=== PATIENT | male | born 1965 | race Caucasian/White ===

== ENCOUNTER 2018-10-05 07:21 | Day surgery (SDC) | payer OTHER ==
[2018-10-05] MEDS ORDERED: Lidocaine Hydrochloride 5 ML INJ ONE (08:41)
[2018-10-05] MEDS ORDERED: Propofol 10 mg/ml Inj (20 ML) ONE (08:41)
[2018-10-05] MEDS ORDERED: Lactated Ringer's 500 ML IV ONE ×2 (08:42)
--- NOTE | 2018-10-05 08:44 | CP.SDSHP ---
Same Day Surgery H & P - History Proposed Procedure: COLONSCOPY Pre-Op Diagnosis: SEE NOTES - Previous Medical/Surgical History Misc: Other Pain: 2.Mild Pain - Allergies Allergies: Allergies No Known Allergies Allergy (Verified 10/04/18 09:28) - Physical Exam General Appearance: N Vital Signs: Vital Signs 10/05/18 07:51 Temperature 99.8 F H Pulse Rate 63 Respiratory 19 Rate Blood Pressure 129/78 O2 Sat by Pulse 98 Oximetry Mental Status: Alert & Oriented x3 Neuro: WNL Heart: WNL Lungs: WNL GI: Other - {Optional Preform as Required} Breast: WNL Abdomen: WNL Rectal: WNL Integument: WNL : WNL Ortho: Other ENT: WNL - Impression Pt. Evaluated Today:Candidate for Anesthesia & Procedure: Yes - Date & Time Time: 08:44 Short Stay Discharge - Short Stay Discharge Admitting Diagnosis/Reason for Visit: ENCOUNTER FOR SCREENING FOR MALIGNANT NEOPLASM OF Disposition: HOME/ ROUTINE Referrals: FAMILY PROVIDER,NO [Primary Care Provider] -
[2018-10-05] MEDS ORDERED: Belladonna-Phenobarbital PO ONE (09:35)
[2018-10-05 11:47] VITALS: TEMP 98
[2018-10-05 11:50] VITALS: O2SAT 100
[2018-10-05 12:01] VITALS: BP 105/60; PULSE 62; RESP 18
== END 2018-10-05 10:30 | disposition home or self-care (01) ==
LOC: EDBD 07:21 → C.ENDO 07:21
PROVIDERS: ATTEND Specialist
DX: Z12.11 Encounter for screening for malignant neoplasm of colon (principal); D12.2 Benign neoplasm of ascending colon; D12.5 Benign neoplasm of sigmoid colon; K64.8 Other hemorrhoids; K57.90 Diverticulosis of intestine, part unspecified, without perforation or abscess without bleeding
CPT/HCPCS: 45380; 88305; J2704; J7120

== ENCOUNTER 2018-11-23 08:54 | Day surgery (SDC) | payer OTHER ==
[2018-11-23 10:32] VITALS: BMI 33.0
[2018-11-23] MEDS ORDERED: Lactated Ringer's 1,000 ML IV ONE (12:15)
--- NOTE | 2018-11-23 12:16 | CP.SDSHP ---
Same Day Surgery H & P - History Proposed Procedure: EGD Pre-Op Diagnosis: SEE NOTES - Previous Medical/Surgical History Pain: 4.Moderate Pain - Allergies Allergies: Allergies No Known Allergies Allergy (Verified 11/23/18 10:31) - Physical Exam General Appearance: N Vital Signs: Vital Signs 11/23/18 10:40 Temperature 99.6 F Pulse Rate 60 Respiratory 20 Rate Blood Pressure 109/68 O2 Sat by Pulse 98 Oximetry Mental Status: Alert & Oriented x3 Neuro: WNL Heart: WNL Lungs: WNL GI: Other - {Optional Preform as Required} Breast: WNL Abdomen: Other Rectal: Other Integument: WNL : WNL Ortho: WNL ENT: WNL - Impression Pt. Evaluated Today:Candidate for Anesthesia & Procedure: Yes - Date & Time Time: 12:16 Short Stay Discharge - Short Stay Discharge Admitting Diagnosis/Reason for Visit: DYSPEPSIA Disposition: HOME/ ROUTINE Referrals: FAMILY PROVIDER,NO [Primary Care Provider] -
[2018-11-23] MEDS ORDERED: Propofol 10 mg/ml Inj (20 ML) ONE ×2 (12:19→12:27)
[2018-11-23] MEDS ORDERED: Pantoprazole 40 mg EC Tab PO ONE (12:30)
[2018-11-23] MEDS ORDERED: Belladonna-Phenobarbital PO ONE (12:30)
[2018-11-23] MEDS ORDERED: Etomidate 20 mg/10ml Inj IV ONE (12:38)
[2018-11-23 12:57] VITALS: TEMP 99.1; O2SAT 100
[2018-11-23 14:15] VITALS: BP 123/67; PULSE 60; RESP 15
== END 2018-11-23 13:45 | disposition home or self-care (01) ==
LOC: C.ENDO 08:54
PROVIDERS: ATTEND Specialist
DX: K30 Functional dyspepsia (principal); K25.9 Gastric ulcer, unspecified as acute or chronic, without hemorrhage or perforation
CPT/HCPCS: 43239; 88305; 88342; J2001; J2704; J7120